=== PATIENT | male | born 1975 | race African-American/Black ===

== ENCOUNTER → 2019-09-29 | Emergency (ER) | payer SELFPAY ==
[~2019-09-29] VITALS: Ht 175.3 cm; Wt 90.7 kg
[~2019-09-29] MED LIST: KETOROLAC TROMETH 60MG/2ML VIAL IM ONE
[2019-09-29 01:23] VITALS: BP 96/52
== END | disposition home or self-care (01) ==
LOC: ER 00:18
DX: S61.552A Open bite of left wrist, initial encounter (principal); W54.0XXA Bitten by dog, initial encounter; Y93.89 Activity, other specified; Y92.89 Other specified places as the place of occurrence of the external cause; Y99.8 Other external cause status
CPT/HCPCS: 29125; 73110; 73130; 96372; 99284; J1885

== ENCOUNTER 2019-10-01 00:23 | Emergency (ER) | payer SELFPAY ==
[~2019-10-01] VITALS: Ht 175.3 cm; Wt 90.7 kg
[2019-10-01 03:53] VITALS: BP 121/73
[2019-10-01] MEDS ORDERED: ACETAMINOPHEN 325 MG TAB PO ONE (04:00)
== END 2019-10-01 04:58 | disposition home or self-care (01) ==
LOC: ER 00:24
DX: S61.552A Open bite of left wrist, initial encounter (principal); W54.0XXA Bitten by dog, initial encounter; Y93.89 Activity, other specified; Y92.89 Other specified places as the place of occurrence of the external cause; Y99.8 Other external cause status